=== PATIENT | male | born 2000 | race Two or more races ===

== ENCOUNTER 2023-10-24 11:41 | Emergency (ER) | payer OTHER ==
[~2023-10-24] VITALS: Ht 180.3 cm; Wt 68.9 kg
[2023-10-24] MEDS ORDERED: ACETAMINOPHEN 500 MG GEL..CAP PO ONE (14:00)
[2023-10-24] MEDS ORDERED: KETOROLAC TROMETHAMINE 30 MG VIAL IM ONE (15:30)
== END 2023-10-24 15:42 | disposition home or self-care (01) ==
LOC: ER 11:41
DX: S29.8XXA Other specified injuries of thorax, initial encounter (principal); V49.9XXA Car occupant (driver) (passenger) injured in unspecified traffic accident, initial encounter; Y93.89 Activity, other specified; Y92.413 State road as the place of occurrence of the external cause; Z88.8 Allergy status to other drugs, medicaments and biological substances